=== PATIENT | male | born 2000 | race African-American/Black ===

== ENCOUNTER 2018-05-08 23:21 | Emergency (ER) | payer OTHER ==
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
[2018-05-09 01:08] VITALS: BP 105/71
== END 2018-05-09 01:09 | disposition home or self-care (01) ==
LOC: ED 23:21
DX: S63.257A Unspecified dislocation of left little finger, initial encounter (principal); W51.XXXA Accidental striking against or bumped into by another person, initial encounter; Y92.149 Unspecified place in prison as the place of occurrence of the external cause; F17.210 Nicotine dependence, cigarettes, uncomplicated
CPT/HCPCS: 26670; 73140; 99282